=== PATIENT | male | born 1980 | race Caucasian/White ===

== ENCOUNTER 2024-04-30 03:55 | Day surgery (SDC) | payer BC, SELFPAY ==
[2024-04-20 14:12] VITALS: BMI 35.2
[2024-04-30] MEDS: LACTATED RINGERS 1,000 ML 150 ML IV CONT (06:24)
[2024-04-30 06:26] VITALS: BP 147/89; PULSE 89; RESP 18; TEMP 36.1; O2SAT 97
--- NOTE | 2024-04-30 07:20 | P.PNAN_ITS ---
Anes - Initial Pre Proc Eval Procedure: Operation Date: 04/30/24 07:30 Proposed Procedures p Screening Colonoscopy - Bakari Serrano MD Date/Time: 04/30/24 07:20 Surgeon: Bakari Serrano MD Pre Op Diagnosis: neoplasm screening Patient Data Age: 44 Gender: M Height: 1.83 m Weight: 122.7 kg Last Vital Signs Temp 97 F L 04/30/24 06:26 Pulse 89 04/30/24 06:26 Resp 18 04/30/24 06:26 BP 147/89 H 04/30/24 06:26 Pulse Ox 97 04/30/24 06:26 O2 Del Method Room Air 04/30/24 06:26 Allergies Allergy/AdvReac Type Severity Reaction Status Date / Time No Known Allergies Allergy Unverified 04/30/24 06:25 Home Medications Medication Instructions Recorded Confirmed Type Adult Probiotic 1 tab-cap PO DAILY 04/20/24 04/30/24 History amlodipine 10 mg tablet 10 mg PO DAILY 04/20/24 04/30/24 History losartan 100 1 tablet PO DAILY 04/20/24 04/30/24 History mg-hydrochlorothiazide 25 mg tablet (Hyzaar) Patient hx anesthesia problems: none Family hx anesthesia problems: none Results Review: All pre-operative results and documents have been reviewed as part of the pre- operative evaluation. [facility] Family History Family History (Updated 05/06/17 @ 17:36 by DOCTOR UNKNOWN) Father Family history of cardiovascular disease Social History Social History Smoking status: Never smoker Tobacco type: smokeless tobacco Smokeless tobacco user: chewing tobacco Alcohol intake: current Substance use: never Substance use type: does not use Living arrangements: with family Spiritual care concerns: No Anes - Eval Final PreProcedure Day of Procedure 04/30/24 07:20 Patient weight: obese Heart: regular rate and rhythm Lungs: clear to auscultation Airway: Mallampati scale class II Neurological: alert and oriented Last oral intake: >/= 8 hours ASA classification: III Emergent: no Anesthetic plan: proceed Anesthesia type and monitoring: general GIVS and standard monitoring Results Review: All pre-operative results and documents have been reviewed as part of the pre- operative evaluation. Informed Consent: The patient's anesthetic plan and its attendant risks and benefits were discussed with the patient/family/POA. Questions were solicited and answers provided to the satisfaction of the patient/family/POA.
--- NOTE | 2024-04-30 07:27 | PM.HPGS ---
History of Present Illness History of Present Illness Consent: Risks, benefits, and alternatives have been discussed and questions answered. Patient agrees to proceed with procedure. Chief complaint: neoplasm screening Narrative: Jarod Hussein is a 44 year old male here for first screening colonoscopy Review of Systems Review of Systems: All systems reviewed & are unremarkable except as noted in HPI and below PMFSH Past Medical History Medical History (Updated 04/30/24 @ 07:27 by Bakari Serrano MD) Colon cancer screening Family History Family History (Updated 05/06/17 @ 17:36 by DOCTOR UNKNOWN) Father Family history of cardiovascular disease Social History Social History Smoking status: Never smoker Tobacco type: smokeless tobacco Smokeless tobacco user: chewing tobacco Alcohol intake: current Substance use: never Substance use type: does not use Living arrangements: with family Spiritual care concerns: No Meds Home Medications and Allergies Home Medications Medication Instructions Recorded Confirmed Type Adult Probiotic 1 tab-cap PO DAILY 04/20/24 04/30/24 History amlodipine 10 mg tablet 10 mg PO DAILY 04/20/24 04/30/24 History losartan 100 1 tablet PO DAILY 04/20/24 04/30/24 History mg-hydrochlorothiazide 25 mg tablet (Hyzaar) Allergies Allergy/AdvReac Type Severity Reaction Status Date / Time No Known Allergies Allergy Unverified 04/30/24 06:25 Vital Signs Vital Signs - 24 hr 04/30/24 06:26 Temperature 97 F L Pulse Rate 89 Respiratory Rate 18 Blood Pressure 147/89 H Pulse Oximetry 97 Oxygen Delivery Room Air Exam Const: General: comfortable and no acute distress HENMT: Face/Nose/Sinus: Normal nares present Eyes: General: appearance normal, both eyes and all related structures Neck: Neck: no JVD Resp: Auscultation: clear to auscultation bilaterally Cardio: Rate: regular rate Rhythm: regular rhythm GI: Inspection: non-distended GI Palp: Yes Soft to palpation Skin: General skin exam: normal color Neuro: General: gait normal Speech: normal speech Extrem: General: normal to inspection Psych: Mental Status: mental status grossly normal Assessment and Plan Assessment and plan (1) Colon cancer screening: Code(s): Z12.11 - Encounter for screening for malignant neoplasm of colon Status: Acute Assessment and Plan: colonoscopy
[2024-04-30 07:45] VITALS: BP 116/82; PULSE 68; RESP 24; O2SAT 99
[2024-04-30 07:55] VITALS: BP 123/84; PULSE 60; RESP 18; O2SAT 99
[2024-04-30 08:05] VITALS: BP 139/95; PULSE 63; RESP 17; O2SAT 100
== END 2024-04-30 08:08 | disposition home or self-care (01) ==
PROVIDERS: PCP Family Medicine; Referring Provider Family Medicine; Visit Provider Internal Medicine Gastroenterology
PROC: 0DJD8ZZ Inspection of Lower Intestinal Tract, Via Natural or Artificial Opening Endoscopic (ICD-10-PCS; CPT 45378; principal; 2024-04-30 07:30)
DX: Z12.11 Encounter for screening for malignant neoplasm of colon (principal); F17.220 Nicotine dependence, chewing tobacco, uncomplicated; E66.9 Obesity, unspecified; Z68.36 Body mass index [BMI] 36.0-36.9, adult
CPT/HCPCS: 45378; J2001; J2704; J7120